=== PATIENT | female | born 1980 | race Caucasian/White ===

== ENCOUNTER 2018-03-11 19:06 | Emergency (ER) | payer OTHER ==
--- NOTE | 2018-03-11 19:18 | PDOC ---
History of Present Illness - General History Source: Patient, Parent(s) Exam Limitations: No Limitations - History of Present Illness Initial Comments: 03/11/18 19:56 The patient is a 37 year old female, with a significant past medical history of anxiety, who presents to the emergency department with several month complaint of nausea, difficulty swallowing, shortness of breath, and back pain. She states her symptoms started in March as nausea and vaginal bleeding between periods which she had a pap smear and biopsies with her Training And Documentation Specialist and were negative. She states the vaginal bleeding stopped, but the nausea persisted with new onset of shortness of breath, back pain, and difficulty swallowing shortly after. She attributes the difficulty swallowing to thick mucus which requires effort to swallow. She reports her SOB as intermittent and alleviated slightly with taking deep breaths while bent forward. She reports seeing an medical receptionist who biopsied a nodule on her thyroid which was found to be benign. She reportedly saw an ENT specialist in the Summer who provided the patient a prescription for protonix BID. She states she took the protonix with alleviation of her symptoms, however, reports her symptoms were exacerbated after eating one plate of food on . She states she restarted her protonix at the time but denies any alleviation of her symptoms since. She reportedly had an endoscopy yesterday which reported some small scattered areas of increased inflammation, but otherwise normal. She states she has been very anxious about her symptoms and reports being seen at least 5 times in urgent care over the past 3-4 months. Secondarily, she states she went to urgent care 3 days ago where she complained about back pain with concern for kidney infection, was found to have a slight UTI and prescribed a 3 day course of ABx which she reportedly completed today without resolve of any of her symptoms. She also reports decreased appetite since her onset of symptoms in January. She states she does not eat much in fear of exacerbating her symptoms. She states she can only eat pasta, bread and some soups. The patient denies chest pain,headache and dizziness. The patient denies fever, chills, vomit, diarrhea and constipation. The patient denies dysuria, frequency , urgency and hematuria. Allergies: sumatriptan Social history: former 1-5 cigarette daily cigarette smoking (cessation in March 2017). Has 2 living children and buying a home with her sister and mother. <Virginia Levin - Last Filed: 03/11/18 20:00> <Norma Paul - Last Filed: 03/12/18 06:07> - General Chief Complaint: Shortness of Breath Stated Complaint: CHRONIC SOB, SWALLOWING DIFFICULTY, BACK PAIN Time Seen by Provider: 03/11/18 19:18 Past History <Virginia Levin - Last Filed: 03/11/18 20:00> <Norma Paul - Last Filed: 03/12/18 06:07> - Past Medical History Allergies/Adverse Reactions: Allergies Allergy/AdvReac Type Severity Reaction Status Date / Time sumatriptan [From Imitrex] Allergy Mild Verified 03/11/18 19:09 Home Medications: Ambulatory Orders Alprazolam 0.5 mg PO ASDIR PRN 03/11/18 Dexlansoprazole [Dexilant] 30 mg PO DAILY #30 cap 03/11/18 Magnesium DAILY 03/11/18 Calais-3 Fatty Acids [Calais-3] 1,000 mg PO DAILY 03/11/18 Pantoprazole Sodium [Protonix] 40 mg PO BID 03/11/18 Review of Systems - Review of Systems Able to Perform ROS?: Yes Comments:: 03/11/18 19:57 CONSTITUTIONAL: Absent: fever, no chills, no fatigue EYES: Absent: visual changes ENT: (+) difficulty swallowing. Absent: ear pain, no sore throat CARDIOVASCULAR: Absent: chest pain, no palpitations RESPIRATORY: (+) SOB Absent: cough GI: (+)nausea. Absent: abdominal pain, no vomiting, no constipation, no diarrhea GENITOURINARY: Absent: dysuria, no frequency, no hematuria MUSKULOSKELETAL: (+) back pain, Absent: no arthralgia, no myalgia SKIN: Absent: rash NEURO: Absent: headache <Virginia Levin - Last Filed: 03/11/18 20:00> *Physical Exam - Vital Signs Last Vital Signs Temp Pulse Resp BP Pulse Ox 98.1 F 84 18 153/105 H 100 03/11/18 19:08 03/11/18 19:08 03/11/18 19:08 03/11/18 19:08 03/11/18 19:08 - Physical Exam Comments: 03/11/18 19:58 GENERAL: The patient is awake, alert, and fully oriented, in no acute distress. HEAD: Normal with no signs of trauma. EYES: Pupils equal, round and reactive to light, extraocular movements intact, sclera anicteric, conjunctiva clear with no pallor. ENT: Ears normal, nares patent, oropharynx clear without exudates. Moist mucous membranes. NECK: Normal range of motion, supple without lymphadenopathy, JVD, or masses. LUNGS: Breath sounds equal, clear to auscultation bilaterally. No wheeze/ crackles. HEART: Regular rate and rhythm, normal S1 and S2 without murmur or rub. ABDOMEN: (+) mild diffuse generalized tenderness. Soft/nondistended. BS wnl. No guarding or rebound. No palpable masses. No hepatosplenomegaly. EXTREMITIES: Normal range of motion, no edema. No clubbing or cyanosis. No cords , erythema, or tenderness. NEUROLOGICAL: Cranial nerves II through XII grossly intact. Normal speech, normal gait. PSYCH: Normal mood, normal affect. SKIN: Warm, Dry, normal turgor, no rashes or lesions noted. <Virginia Levin - Last Filed: 03/11/18 20:00> Moderate Sedation - Procedure Monitoring Vital Signs: Procedure Monitoring Vital Signs Temperature 98.1 F 03/11/18 19:08 Pulse Rate 84 03/11/18 19:08 Respiratory Rate 18 03/11/18 19:08 Blood Pressure 153/105 H 03/11/18 19:08 O2 Sat by Pulse Oximetry (%) 100 03/11/18 19:08 <Virginia Levin - Last Filed: 03/11/18 20:00> ED Treatment Course - ADDITIONAL ORDERS Additional order review: Laboratory Results 03/11/18 19:45 Urine Color Not Urine Appearance Not <Virginia Levin - Last Filed: 03/11/18 20:00> Progress Note - Progress Note Progress Note: Documentation has been prepared under my direction and personally reviewed by me in its entirety. I attest that this documented accurately reflects all work, treatment, procedures and medical decision making performed by me. <Norma Paul - Last Filed: 03/12/18 06:07> Medical Decision Making - Medical Decision Making As noted above, this 37-year-old woman with a few month history of multiple complaints, specifically epigastric discomfort and difficulty swallowing, who underwent upper endoscopy yesterday to GERD among other diagnoses, presents with those complaints as well as mounting anxiety. Exam as noted reveals no evidence of significant abdominal tenderness, masses or organomegaly. Blood pressure was elevated on presentation but repeat measurement later revealed normal BP Urinalysis was performed because patient had just completed a short course of antibiotics for presumed UTI seen on UA at an urgent care center. The patient was also concerned that the above symptoms were consistent with myocardial ischemia (although she does not have any risk factors currently for coronary artery disease). 12-lead electrocardiogram was performed. Preliminary interpretation: Sinus bradycardia at 58 bpm; FL interval slightly shortened at 90 ms. Remainder of intervals, axis and wave forms are normal. There is no evidence of acute ST or T-wave abnormalities. No evidence of acute cardiac arrhythmia present. Etiology of patient's symptoms discussed with the patient. Follow-up with product development engineer is scheduled for Tuesday, to discuss results of the upper endoscopy. Meanwhile, since the patient has been taking Protonix (twice a day) for over 3 weeks without significant change in symptoms, reasonable step would be to change the PPI. Patient has taken Dexilant in the past with good effect for presumed peptic ulcer disease without side effects. Will change PPI to Dexilant while awaiting follow-up with product development engineer. The patient has been taking magnesium supplements to avoid migraines while taking PPI and she has been told to continue to do this. Although the patient does not have a psychiatrist or psychologist,she realizes she may need treatment of her anxiety/depression she has made an appointment with primary care doctor on Tuesday,March 14 to discuss this. 03/12/18 06:06 <Norma Paul - Last Filed: 03/12/18 06:07> *DC/Admit/Observation/Transfer - Attestations Scribe Attestion: 03/11/18 19:58 Documentation prepared by Virginia Levin, acting as medical concierge for Norma Paul MD <Virginia Levin - Last Filed: 03/11/18 20:00> <Norma Paul - Last Filed: 03/12/18 06:07> Diagnosis at time of Disposition: Epigastric abdominal pain - Discharge Dispostion Disposition: HOME Condition at time of disposition: Stable - Prescriptions Prescriptions: Dexlansoprazole [Dexilant] 30 mg PO DAILY #30 cap - Referrals Referrals: Jorge Shirley [Primary Care Provider] - - Patient Instructions Printed Discharge Instructions: DI for Gastroesophageal Reflux Disease (GERD) Additional Instructions: Stop Protonix; begin Dexilant 30 mg daily as discussed Continue magnesium supplements Frequent, small meals as discussed; avoid prolonged fasting Follow-up with product development engineer on Tuesday, March 13 as scheduled Follow-up with general medical physician on March 14 as scheduled Return to ER if you have persistent, severe pain or shortness of breath - Post Discharge Activity
[2018-03-11 19:23] VITALS: TEMP 98.1; BMI 28.1
[2018-03-11 20:00] LABS: URINE APPEARANCE Clear; URINE BILIRUBIN Negative (NEGATIVE); URINE COLOR Yellow; URINE GLUCOSE (UA) Negative (NEGATIVE); URINE KETONE Negative (NEGATIVE); URINE LEUK ESTERASE TRACE (NEGATIVE); URINE NITRITE Negative (NEGATIVE); URINE PROTEIN Negative (NEGATIVE); URINE UROBILINOGEN 0.2 (0.2-1.0)
[2018-03-11 20:11] LABS: HCG,QUALITATIVE URINE Negative
[2018-03-11 20:22] LABS: AMORP URATES NONE SEEN /hpf (NONE SEEN); EPI CELLS 1+ /HPF; URINE BACTERIA 1+ /hpf (NEGATIVE)
[2018-03-11 20:47] VITALS: BP 130/89; PULSE 78
--- NOTE | 2018-03-13 09:58 | EKG ---
Test Reason : Blood Pressure : / mmHG Vent. Rate : 058 BPM Atrial Rate : 058 BPM P-R Int : 090 ms QRS Dur : 078 ms QT Int : 418 ms P-R-T Axes : 043 021 029 degrees QTc Int : 410 ms SINUS BRADYCARDIA WITH SHORT DC OTHERWISE NORMAL ECG NO PREVIOUS ECGS AVAILABLE Confirmed by EVAN CALVERT MD ([id number]) on 03/13/2018 9:58:34 AM Referred By: Physician Emergency Dept Confirmed By:EVAN CALVERT MD
== END 2018-03-11 20:50 | disposition home or self-care (01) ==
LOC: FER 19:06
DX: R10.13 Epigastric pain (principal); F41.9 Anxiety disorder, unspecified
CPT/HCPCS: 81003; 81015; 84703; 87086; 93005; 99282-25

== ENCOUNTER 2018-03-17 15:26 | Emergency (ER) | payer OTHER ==
[2018-03-17 15:55] VITALS: BP 137/91; PULSE 80; TEMP 97.7; BMI 27.3
[2018-03-17] MEDS ORDERED: ACETAMINOPHEN 325 MG TABLET (FP) PO ONE (16:04)
[2018-03-17] MEDS ORDERED: FAMOTIDINE 20 MG/50 ML IVPB 20 MG/50 ML MG IVPB ONE ×2 (16:04→16:35)
[2018-03-17] MEDS ORDERED: ACETAMINOPHEN 325 MG TABLET (FP) ONE (16:34)
[2018-03-17 16:47] LABS: URINE APPEARANCE Clear; URINE BILIRUBIN Negative (NEGATIVE); URINE COLOR Yellow; URINE GLUCOSE (UA) Negative (NEGATIVE); URINE KETONE Negative (NEGATIVE); URINE LEUK ESTERASE TRACE (NEGATIVE); URINE NITRITE Negative (NEGATIVE); URINE PROTEIN Negative (NEGATIVE); URINE UROBILINOGEN 0.2 (0.2-1.0)
[2018-03-17 16:55] LABS: BASO % 0.4 % (0-2.0); EOS % 0.2 % (0-4.5); HCG,QUALITATIVE URINE Negative; HEMOGLOBIN 12.2 GM/dl (10.7-15.3); LYMPH % 19.9 % (8-40); MCH 29.6 pg (25.7-33.7); MEAN CELL VOLUME 89.7 fl (80-96); MEAN PLT VOLUME 8.9 fl (7.5-11.1); MONO % 5.5 % (3.8-10.2); PLATELET COUNT 310 K/MM3 (134-434); RBC 4.13 M/mm3 (3.60-5.2); RDW 12.1 % (11.6-15.6)
[2018-03-17 17:10] LABS: ALBUMIN 4.2 g/dl (3.5-5.0); ALK PHOS 70 U/L (32-92); ANION GAP 7 MMOL/L (8-16); BILIRUBIN,TOTAL 0.4 mg/dl (0.2-1.0); BLOOD UREA NITROGEN 14 mg/dl (7-18); CALCIUM 9.3 mg/dl (8.4-10.2); CHLORIDE 106 mmol/L (98-107); CO2 26 mmol/L (22-28); CREATININE 0.6 mg/dl (0.6-1.3); GLUCOSE,RANDOM 105 mg/dl (74-106); POTASSIUM 3.5 mmol/L (3.5-5.1); SGOT/AST 26 U/L (10-42); SGPT/ALT 21 U/L (10-40); SODIUM 139 mmol/L (136-145)
[2018-03-17 17:11] LABS: AMORP URATES NONE SEEN /hpf (NONE SEEN); EPI CELLS FEW /HPF; URINE BACTERIA 1+ /hpf (NEGATIVE)
--- NOTE | 2018-03-17 17:28 | PDOC ---
History of Present Illness - General Chief Complaint: Shortness of Breath Stated Complaint: SOB,BACK PAIN Time Seen by Provider: 03/17/18 15:27 History Source: Patient Exam Limitations: No Limitations - History of Present Illness Initial Comments: 03/17/18 17:14 37 year old female c/ hx of asthma presents with chest pain. The patient was here several days ago for similar complaints. At that time, pt was endorsing intermittent symptoms of irregular vaginal bleeding (with a negative pap smear). Also endorsed intermittent chest burning sensation radiating to back and upper abdominal pain. Has had upper endoscopy done earlier this month which was reportedly unremarkable. However, several days ago, pt wa seen here in the ER. Was switched PPIs as it was thought 2/2 PPI. However, pt does not feel better despite switch in medications. Continues to have upper abdominal pain, chest burning sensation radiating to the back. Denies SOB. Reports normal bowel movements. Denies numbness, weakness. Never had chest or abdominal imaging. Past History - Past Medical History Allergies/Adverse Reactions: Allergies Allergy/AdvReac Type Severity Reaction Status Date / Time sumatriptan [From Imitrex] Allergy Mild Verified 03/11/18 19:09 Home Medications: Ambulatory Orders Alprazolam 0.5 mg PO ASDIR PRN 03/11/18 Dexlansoprazole [Dexilant] 30 mg PO DAILY #30 cap 03/11/18 Sargents-3 Fatty Acids [Sargents-3] 1,000 mg PO DAILY 03/11/18 Pantoprazole Sodium [Protonix] 40 mg PO BID 03/11/18 Escitalopram Oxalate [Lexapro -] 5 mg PO DAILY 03/17/18 COPD: No GI Disorders: Yes (ENDOSCOPY 03/10/18) Psychiatric Problems: Yes (ANXIETY) - Suicide/Smoking/Psychosocial Hx Smoking History: Former smoker Have you smoked in the past 12 months: Yes If you are a former smoker, when did you quit?: 03/2017 Information on smoking cessation initiated: Yes 'Breaking Loose' booklet given: 03/11/18 Hx Alcohol Use: No Drug/Substance Use Hx: No Review of Systems - Review of Systems Able to Perform ROS?: Yes Comments:: 03/17/18 17:29 GENERAL/CONSTITUTIONAL: [No fever or chills. No weakness. No weight change.] HEAD, EYES, EARS, NOSE AND THROAT: [No change in vision. No ear pain or discharge. No sore throat.] CARDIOVASCULAR: No shortness of breath. + chest pain RESPIRATORY: [No cough, wheezing, or hemoptysis.] GASTROINTESTINAL: [No nausea, vomiting, diarrhea or constipation. No rectal bleeding.] +abdominal pain GENITOURINARY: [No dysuria, frequency, or change in urination.] MUSCULOSKELETAL: [No joint or muscle swelling or pain. No neck or back pain.] SKIN AND BREASTS: [No rash or easy bruising.] NEUROLOGIC: [No headache, vertigo, loss of consciousness, or loss of sensation.] PSYCHIATRIC: [No depression or anxiety.] ENDOCRINE: [No increased thirst. No abnormal weight change.] HEMATOLOGIC/LYMPHATIC: [No anemia, easy bleeding, or history of blood clots.] ALLERGIC/IMMUNOLOGIC: [No hives or skin allergy. No latex allergy.] *Physical Exam - Vital Signs Last Vital Signs Temp Pulse Resp BP Pulse Ox 97.7 F 80 20 137/91 100 03/17/18 15:26 03/17/18 15:26 03/17/18 15:26 03/17/18 15:26 03/17/18 15:26 - Physical Exam Comments: 03/17/18 17:29 GENERAL: Awake, alert, and fully oriented, in no acute distress HEAD: No signs of trauma EYES: PERRLA, EOMI, sclera anicteric, conjunctiva clear ENT: Auricles normal inspection, hearing grossly normal, nares patent, Moist mucosa NECK: Normal ROM, supple, LUNGS: Breath sounds equal, clear to auscultation bilaterally. No wheezes, and no crackles HEART: Regular rate and rhythm, normal S1 and S2, no murmurs, rubs or gallops ABDOMEN: Soft, No guarding, no rebound. No masses. TTP epigastric. Max sign negative. EXTREMITIES: Normal range of motion, no edema. No clubbing or cyanosis. No cords, erythema, or tenderness NEUROLOGICAL: Cranial nerves II through XII grossly intact. Normal speech, normal gait SKIN: Warm, Dry, normal turgor, no rashes or lesions noted. Moderate Sedation - Procedure Monitoring Vital Signs: Procedure Monitoring Vital Signs Temperature 97.7 F 03/17/18 15:26 Pulse Rate 80 03/17/18 15:26 Respiratory Rate 20 03/17/18 15:26 Blood Pressure 137/91 03/17/18 15:26 O2 Sat by Pulse Oximetry (%) 100 03/17/18 15:26 Heart Score/ECG Review #1 ECG reviewed & interpreted by me at: 16:20 03/17/18 17:14 NSR 60 with short NJ, low voltage QRS, no std/sung, T wave flat III, avF, QTC 382 msec ED Treatment Course - LABORATORY CBC & Chemistry Diagram: 03/17/18 16:13 03/17/18 16:13 - ADDITIONAL ORDERS Additional order review: Laboratory Results 03/17/18 16:13 Urine Color Yellow Urine Appearance Clear Urine pH 7.0 Ur Specific [place] 1.010 Urine Protein Negative Urine Glucose (UA) Negative Urine Ketones Negative Urine Blood 1+ H Urine Nitrite Negative Urine Bilirubin Negative Urine Urobilinogen 0.2 Ur Leukocyte Esterase Trace H Urine RBC 5-10 Urine WBC 2-5 Ur Epithelial Cells Few Amorphous Urates None seen Urine Bacteria 1+ Urine HCG, Qual Negative 03/17/18 16:13 RBC 4.13 MCV 89.7 MCHC 33.0 RDW 12.1 MPV 8.9 Neutrophils % 74.0 Lymphocytes % 19.9 Monocytes % 5.5 Eosinophils % 0.2 Basophils % 0.4 - RADIOLOGY Radiology Studies Ordered: Category Date Time Status CHEST CTA [CT] Stat CT Scan 03/17/18 16:03 Ordered ABDOMEN US [US] Stat Ultrasound 03/17/18 16:03 Ordered - Medications Given in the ED: ED Medications Discontinued Medications Generic Name Dose Route Start Last Admin Trade Name Freq PRN Reason Stop Dose Admin Acetaminophen 650 mg 03/17/18 16:04 03/17/18 16:41 Tylenol - PO 03/17/18 16:05 650 mg ONCE ONE Administration Famotidine/Sodium Chloride 20 mg in 50 mls @ 100 mls/hr 03/17/18 16:04 16:41 Pepcid 20 Mg Premixed Ivpb - IVPB 03/17/18 16:33 100 mls/hr ONCE ONE Administration Medical Decision Making - Medical Decision Making 03/17/18 17:30 Vital Signs Temp Pulse Resp BP Pulse Ox 97.7 F 80 20 137/91 100 03/17/18 15:26 03/17/18 15:26 03/17/18 15:26 03/17/18 15:26 03/17/18 15:26 Atypical chest pain. With the epigastric pain and squeezing chest pain, somewhat worsened after eating, and difficulty swallowing, I suspect that this is more GI. Could this be esophageal dysmotility? Pt does have a swallowing study scheduled as an outpatient. Will however obtain chest CT to r/o PE, other pulmonary structural abnormalities. RUQ ultrasound to r/o acute cholecytitis. Labs including lipase. If the workup is negative, I would pursue with an outpatient GI workup. I may also include a neuro and rheum outpatient workup as well. 03/17/18 18:24 CBC, BMP 03/17/18 16:13 03/17/18 16:13 CMP Sodium 139 mmol/L (136-145) 03/17/18 16:13 Potassium 3.5 mmol/L (3.5-5.1) 03/17/18 16:13 Chloride 106 mmol/L (98-107) 03/17/18 16:13 Carbon Dioxide 26 mmol/L (22-28) 03/17/18 16:13 Anion Gap 7 MMOL/L (8-16) L 03/17/18 16:13 BUN 14 mg/dl (7-18) 03/17/18 16:13 Creatinine 0.6 mg/dl (0.6-1.3) 03/17/18 16:13 Creat Clearance w eGFR > 60 (>60) 03/17/18 16:13 Random Glucose 105 mg/dl (74-106) 03/17/18 16:13 Calcium 9.3 mg/dl (8.4-10.2) 03/17/18 16:13 Total Bilirubin 0.4 mg/dl (0.2-1.0) 03/17/18 16:13 AST 26 U/L (10-42) 03/17/18 16:13 ALT 21 U/L (10-40) 03/17/18 16:13 Alkaline Phosphatase 70 U/L (32-92) 03/17/18 16:13 Troponin I < 0.03 ng/ml (0.00-0.06) 03/17/18 16:13 Total Protein 7.0 g/dl (6.4-8.3) 03/17/18 16:13 Albumin 4.2 g/dl (3.5-5.0) 03/17/18 16:13 Urine Test Results Urine Color Yellow 03/17/18 16:13 Urine Appearance Clear 03/17/18 16:13 Urine pH 7.0 (4.5-8) 03/17/18 16:13 Ur Specific [place] 1.010 (1.010-1.035) 03/17/18 16:13 Urine Protein Negative (NEGATIVE) 03/17/18 16:13 Urine Glucose (UA) Negative (NEGATIVE) 03/17/18 16:13 Urine Ketones Negative (NEGATIVE) 03/17/18 16:13 Urine Blood 1+ (NEGATIVE) H 03/17/18 16:13 Urine Nitrite Negative (NEGATIVE) 03/17/18 16:13 Urine Bilirubin Negative (NEGATIVE) 03/17/18 16:13 Ur Leukocyte Esterase Trace (NEGATIVE) H 03/17/18 16:13 Urine RBC 5-10 /hpf (0-3) 03/17/18 16:13 Urine WBC 2-5 (0-5) 03/17/18 16:13 Ur Epithelial Cells Few /HPF 03/17/18 16:13 Urine Bacteria 1+ /hpf (NEGATIVE) 03/17/18 16:13 Ultrasound reviewed. Negative. Pending CT scan of chest. 03/17/18 19:03 CT scan reviewed. No PE, no acute findings. Pt informed of left renal stones. At this time, I do not have a cause for patient's symptoms. It may be esophageal dysmotility, however, pt would benefit from second opinion from another GI, neuro, and rheum. Pt given results and will follow up with plan. *DC/Admit/Observation/Transfer Diagnosis at time of Disposition: Atypical chest pain - Discharge Dispostion Disposition: HOME Condition at time of disposition: Stable Decision to Admit order: No - Referrals Referrals: Trent Marques MD [Staff Physician] - Oh Mejia MD [Staff Physician] - Aris Castanon MD [Staff Physician] - - Patient Instructions Printed Discharge Instructions: DI for Atypical Chest Pain, DI for Esophageal Dysphagia Additional Instructions: Please take the copy of your results and follow up with your doctor. Call to schedule an appointment. - Post Discharge Activity
[2018-03-17] MEDS ORDERED: SUCRALFATE 1 GM TABLET (FP) PO ONE (17:40)
[2018-03-17] MEDS ORDERED: MAG HYDROX/AL HYDROX/SIMETH 30 ML UNIT-DOSE CUP PO ONE (17:40)
[2018-03-17] MEDS ORDERED: SUCRALFATE 1 GM/10 ML UNIT DOSE CUPS ONE (18:41)
[2018-03-17] MEDS ORDERED: MAG HYDROX/AL HYDROX/SIMETH 30 ML UNIT-DOSE CUP ONE (18:42)
[2018-03-17 19:03] LABS: LIPASE 167 U/L (73-393)
--- NOTE | 2018-03-18 15:49 | EKG ---
Test Reason : Blood Pressure : / mmHG Vent. Rate : 060 BPM Atrial Rate : 060 BPM P-R Int : 100 ms QRS Dur : 082 ms QT Int : 382 ms P-R-T Axes : 034 034 032 degrees QTc Int : 382 ms SINUS RHYTHM WITH SHORT DC LOW VOLTAGE QRS BORDERLINE ECG WHEN COMPARED WITH ECG OF 11-MAR-2018 19:51, NO SIGNIFICANT CHANGE WAS FOUND Confirmed by PHILLY FONSECA MD ([id number]) on 03/18/2018 3:49:37 PM Referred By: MD HOLDEN Confirmed By:PHILLY FONSECA MD
== END 2018-03-17 19:25 | disposition home or self-care (01) ==
LOC: FER 15:26
PROC: 3E033GC Introduction of Other Therapeutic Substance into Peripheral Vein, Percutaneous Approach (ICD-10-PCS; principal; 2018-03-17)
DX: R07.89 Other chest pain (principal); J45.909 Unspecified asthma, uncomplicated; Z87.891 Personal history of nicotine dependence
CPT/HCPCS: 36415; 71275-TC; 76700-TC; 80053; 81003; 81015; 83690; 84484; 84703; 85025; 93005; 99282-25

== ENCOUNTER 2020-02-12 16:13 | Emergency (ER) | payer OTHER ==
[2020-02-12] MEDS ORDERED: KETOROLAC TROMETHAMINE 30 MG/1 ML VIAL IM ONE ×2 (16:15→18:40)
[2020-02-12] MEDS ORDERED: HYDROmorphone HCL CARPU-JECT 1 MG/1 ML DISP.SYRIN IM ONE ×2 (16:19→16:40)
[2020-02-12] MEDS ORDERED: HYDROmorphone HCL CARPU-JECT 1 MG/1 ML DISP.SYRIN ONE ×2 (16:20→16:41)
[2020-02-12 16:31] VITALS: BP 129/88; PULSE 81; TEMP 97.8; BMI 31.2
[2020-02-12] MEDS ORDERED: ONDANSETRON *ODT* 4 MG TABLET SL ONE (16:40)
[2020-02-12] MEDS ORDERED: ONDANSETRON *ODT* 4 MG TABLET ONE (16:43)
== END 2020-02-12 20:47 | disposition home or self-care (01) ==
LOC: FER 16:13
PROC: 3E023NZ Introduction of Analgesics, Hypnotics, Sedatives into Muscle, Percutaneous Approach (ICD-10-PCS; principal; 2020-02-12)
PROC: 3E023NZ Introduction of Analgesics, Hypnotics, Sedatives into Muscle, Percutaneous Approach (ICD-10-PCS; 2020-02-12)
PROC: 3E0233Z Introduction of Anti-inflammatory into Muscle, Percutaneous Approach (ICD-10-PCS; 2020-02-12)
DX: N23 Unspecified renal colic (principal)
CPT/HCPCS: 76775-TC; 99285-25; Q0162